=== PATIENT | female | born 1945 | race Caucasian/White ===

== ENCOUNTER 2017-08-06 10:51 | Emergency (ER) | payer OTHER ==
[~2017-08-06] VITALS: Ht 157.5 cm; Wt 77.1 kg
== END 2017-08-06 13:07 | disposition home or self-care (01) ==
LOC: ER 10:51
DX: S52.592A Other fractures of lower end of left radius, initial encounter for closed fracture (principal); S92.352A Displaced fracture of fifth metatarsal bone, left foot, initial encounter for closed fracture; S30.0XXA Contusion of lower back and pelvis, initial encounter; M21.6X2 Other acquired deformities of left foot; M47.895 Other spondylosis, thoracolumbar region; W18.09XA Striking against other object with subsequent fall, initial encounter; Y93.89 Activity, other specified; Y92.018 Other place in single-family (private) house as the place of occurrence of the external cause; Y99.8 Other external cause status

== ENCOUNTER 2022-06-02 10:30 | Inpatient (IN) | payer OTHER ==
[~2022-06-02] VITALS: Ht 157.5 cm; Wt 74.8 kg
[2022-06-02] MEDS ORDERED: [UNRECOGNIZED DRUG - OTHER] PO (14:36)
[2022-06-02] MEDS ORDERED: IRBESARTAN-HCT1 EACH PO (14:36)
[2022-06-02] MEDS ORDERED: ACID REDUCER20 M1 PO (14:37)
[2022-06-02] MEDS ORDERED: ACID REDUCER20 M1 (14:37)
[2022-06-02] MEDS ORDERED: [UNRECOGNIZED DRUG - OTHER] PO (14:37)
[2022-06-02] MEDS ORDERED: MIRTAZAPINE15 M1 PO (14:38)
[2022-06-02] MEDS ORDERED: ZOL PO (14:38)
[2022-06-02] MEDS ORDERED: TOVIAZ8 MG PO (14:39)
[2022-06-08] MEDS ORDERED: FAMOTIDINE20 MG (08:59)
[2022-06-08] MEDS ORDERED: METFORMIN HCL500 M4 (08:59)
[2022-06-08] MEDS ORDERED: DULOXETINE HCL30 MG (08:59)
[2022-06-08] MEDS ORDERED: FLOVENT HFA12 GM (08:59)
[2022-06-08] MEDS ORDERED: ZOLPIDEM TARTRA10 MG (09:00)
[2022-06-08] MEDS ORDERED: SULINDAC200 MG (09:00)
[2022-06-08] MEDS ORDERED: ROSUVASTATIN CA10 MG (09:00)
[2022-06-08] MEDS ORDERED: GABAPENTIN300 M2 (09:00)
[2022-06-08] MEDS ORDERED: MONTELUKAST SOD10 MG (09:00)
[2022-06-08] MEDS ORDERED: CARVEDILOL3.125 M1 (09:00)
[2022-06-08] MEDS ORDERED: OMEPRAZOLE40 MG (09:00)
[2022-06-08] MEDS ORDERED: IRBESARTAN150 MG (09:00)
[2022-06-08] MEDS ORDERED: PANTOPRAZOLE SO40 MG (09:00)
== END 2022-06-09 15:31 | DRG 470 ==
LOC: EDSTATUS 10:30 → ADM 10:30 → SURH 06-07 07:00 → O/R 06-07 10:03 → SURH 06-07 10:30
PROVIDERS: ADMIT Orthopaedic Surgery; ATTEND Orthopaedic Surgery
PROC: 3E0F7SF Introduction of Other Gas into Respiratory Tract, Via Natural or Artificial Opening (ICD-10-PCS; 2022-06-07)
PROC: 0SRB0JZ Replacement of Left Hip Joint with Synthetic Substitute, Open Approach (ICD-10-PCS; principal; 2022-06-07 07:00)
DX: M16.12 Unilateral primary osteoarthritis, left hip (principal); D62 Acute posthemorrhagic anemia; M85.68 Other cyst of bone, other site; M24.652 Ankylosis, left hip; I10 Essential (primary) hypertension